=== PATIENT | female | born 1955 | race Caucasian/White ===

== ENCOUNTER 2023-05-13 10:23 | Outpatient (OUT) | payer MEDICARE, SELFPAY ==
--- NOTE | 2023-05-13 10:26 | MM_ITS ---
Patient Name: STEPHANIE JACOB MR#: [id number] : 1955 Exam Date: 05/13/2023 Ordering Doctor: DR YADIEL SANTANA M.D. RADIOLOGY REPORT PROCEDURE: MM TOMOSYNTHESIS SCREENING BI COMPARISON: MAMMO POST BIOPSY RIGHT, 06/02/2021. MG MAMM SCREEN 3D GERARD CAD, 05/12/2022. INDICATIONS: screening Calculator Name NCI Breast Cancer Risk Assessment Tool 5 Year Breast Cancer Risk 2.00% Lifetime Breast Cancer Risk 6.30% Personal Breast Cancer No Personal Ovarian Cancer No Treatments None Family Cancers Father with colon cancer at age ~76. LOCATION: [facility] BREAST COMPOSITION: Heterogeneously dense,which may obscure small masses. FINDINGS: DIAGNOSTIC CATEGORY 2--BENIGN FINDING. NO CHANGE FROM COMPARISON. Scattered benign-appearing calcifications are present. RIGHT BREAST: No significant suspicious finding. Stable micro clip marker lower inner quadrant, anterior breast LEFT BREAST: No significant suspicious finding. RECOMMENDATIONS: ROUTINE MAMMOGRAM AND CLINICAL EVALUATION IN 12 MONTHS. PLEASE NOTE: A NORMAL MAMMOGRAM DOES NOT EXCLUDE THE POSSIBILITY OF BREAST CANCER. A CLINICALLY SUSPICIOUS PALPABLE LUMP SHOULD BE BIOPSIED. Dictated by: Cole Robles MD on 05/13/2023 at 12:50 Approved by: Cole Robles MD on 05/13/2023 at 12:52
== END 2023-05-13 10:24 | disposition home or self-care (01) ==
LOC: MAMMO 10:23
PROVIDERS: PCP Family Medicine; Visit Provider Family Medicine
DX: Z12.31 Encounter for screening mammogram for malignant neoplasm of breast (principal); Z80.0 Family history of malignant neoplasm of digestive organs
CPT/HCPCS: 77063; 77067

== ENCOUNTER 2024-02-03 09:58 | Outpatient (OUT) | payer MEDICARE, SELFPAY ==
--- OUTSIDE RECORDS SUMMARY | 2024-02-03 10:03 | XMS_ITS | CCD ---
Author Organization [facility] Care Team Providers Care 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 Name Role Phone ESTHER, DR COTTO Admitting Unavailable ESTHER, DR COTTO Attending Unavailable ESTHER, DR COTTO Primary Care Unavailable ETSHER, DR COTTO Consulting Unavailable WEST, DR LALA [place] Consulting Unavailable ESTHER, DR COTTO Admitting Unavailable ESTHER, DR COTTO Attending Unavailable ESTHER, DR COTTO Primary Care Unavailable ESTHER, DR COTTO Consulting Unavailable WEST, DR LALA [place] Consulting Unavailable HEMMER, DR RAJWINDER Olsen Admitting Unavailable HEMMER, DR RAJWINDER Olsen Attending Unavailable ESTHER, DR COTTO Primary Care Unavailable Zieber, DR Dick Consulting Unavailable HEMMER, DR RAJWINDER Olsen Consulting Unavailable Boby Santana MD Unavailable Boby Santana MD Primary Care Provider [phone] BOBY SANTANA Attending Unavailable BOBY SANTANA Attending Unavailable BOBY SANTANA Attending Unavailable Boby Santana MD Unavailable Medications Current Medications Medication Drug Class(es) Dates Sig (Normalized) Sig (Original) alendronic acid 70 mg oral tablet (4 sources) Bisphosphonate Start: 03-17-2023 alendronate (Fosamax) 70 MG tablet Indications: Osteoporosis, unspecified osteoporosis type, unspecified pathological fracture presence (CMS/HCC) TAKE 1 TABLET ONCE WEEKLY 12 tablet 3 03/17/2023 Active atorvastatin 20 mg oral tablet (4 sources) HMG-CoA Reductase Inhibitor Start: 05-10-2023 atorvastatin (Lipitor) 20 MG tablet Indications: Elevated LDL cholesterol level (CMS/HCC) TAKE 1 TABLET ONCE DAILY 100 tablet 3 05/10/2023 Active busPIRone hydrochloride 5 mg oral tablet (4 sources) Start: 12-02-2023 take 1 tablet by mouth three times daily at bedtime busPIRone (Buspar) 5 MG tablet Indications: Anxiety TAKE 1 TABLET BY MOUTH THREE TIMES DAILY (IN THE MORNING, IN THE EVENING, and BEFORE bedtime) 100 tablet 2 12/02/2023 Active Start: 10-05-2022 take 1 tablet by marisol th in the morning, then take 1 tablet by mouth in the evening, then take 1 tablet by mouth at bedtime busPIRone (Buspar) 5 MG tablet Indications: Anxiety Take 1 tablet (5 mg) by mouth in the morning and 1 tablet (5 mg) in the evening and 1 tablet (5 mg) before bedtime. 90 tablet 2 10/05/2022 Active carvedilol 6.25 mg oral tablet (2 sources) alpha-Adrenergic Carole, beta-Adrenergic Carole Start: 01-17-2024 End: 01-16-2025 take 1 tablet by mouth in the morning carvedilol (Coreg) 6.25 MG tablet Indications: Primary hypertension (CMS/HCC) Take 1 tablet (6.25 mg) by mouth in the morning and 1 tablet (6.25 mg) in the evening. Take with meals. 60 tablet 11 01/17/2024 01/16/2025 Active hydroCHLOROthiazide 25 mg oral tablet (4 sources) Thiazide Diuretic Start: 09-01-2023 take 1 tablet by mouth once daily hydroCHLOROthiazide (HYDRODiuril) 25 MG tablet Indications: Primary hypertension (CMS/HCC) TAKE 1 TABLET BY MOUTH ONCE DAILY at the same time each day 100 tablet 3 09/01/2023 Active hydroCHLOROthiaz sammie (HYDRODiuril) 12.5 MG tablet 1 (one) time each day at the same time. 0 Active zolpidem tartrate 10 mg oral tablet (5 sources) gamma-Aminobutyric Acid-ergic Agonist Start: 12-27-2023 zolpidem (Ambien) 10 MG tablet Indications: Anxiety Take 1 tablet (10 mg) by mouth as needed at bedtime for sleep 30 tablet 12/27/2023 Active Start: 01-11-2023 End: 08-18-2023 take 1 tablet by mouth once daily zolpidem (Ambien) 10 MG tablet Indications: Anxiety Take 1 tablet (10 mg) by mouth 1 (one) time each day at the same time 30 tablet 2 05/20/2023 08/18/2023 Active Problems Active Problems Problem Classification Problem Date Documented Date Episodic/Chronic Anxiety disorders (5 sources) Anxiety; Translations: [Anxiety disorder, unspecified] Onset: 09-29-2022 05-20-2023 Chronic Coagulation and hemorrhagic disorders (4 sources) Thrombocytopenic disorder; Translations: [Thrombocytopenia, unspecified] Onset: 09-29-2022 09-29-2022 Chronic Disorders of lipid metabolism (4 sources) Raised low density lipoprotein cholesterol; Translations: [Pure hypercholesterolemia, unspecified] Onset: 09-29-2022 10-27-2022 Chronic Essential hypertension (6 sources) Hypertensive disorder; Translations: [Essential (primary) hypertension] Onset: 10-05-2022 10-05-2022 Chronic Glaucoma (4 sources) Bilateral glaucoma; Translations: [Unspecified glaucoma] Onset: 09-29-2022 09-29-2022 Chronic Menopausal disorders (6 sources) Decreased estrogen level; Translations: [Other primary ovarian failure] Onset: 09-29-2022 09-29-2022 Chronic Nonmalignant breast conditions (1 source) Fibrosclerosis of right breast; Translations: [FIBROSCLEROSIS OF RIGHT BREAST] Onset: 06-09-2021 Chronic Nutritional deficiencies (4 sources) Vitamin D deficiency; Translations: [Vitamin D deficiency, unspecified] Onset: 09-29-2022 09-29-2022 Chronic Osteoporosis (4 sources) Osteoporosis; Translations: [Age-related osteoporosis without current pathological fracture] Onset: 09-29-2022 09-29-2022 Chronic Residual codes; unclassified (6 sources) Obstructive sleep apnea syndrome; Translations: [Obstructive sleep apnea (adult) (pediatric)] Onset: 09-29-2022 Resolved: 06-07-2023 09-29-2022 Chronic Residual codes; unclassified (1 source) Family history of malignant neoplasm of digestive organs; Translations: [FAM HX MALIG NEOPLASM DIGESTIV ORGN] Onset: 05-14-2022 Episodic Unclassified (1 source) Unspecified lump in the right breast, overlapping quadrants; Translations: [UNS LUMP RT BREAST OVRLPNG QUADRNTS] Onset: 06-09-2021 Past or Other Problems Problem Classification Problem Date Documented Da te Episodic/Chronic Administrative/social admission (4 sources) Patient encounter status; Translations: [Other specified counseling] Onset: 10-05-2022 10-05-2022 Episodic Nonmalignant breast conditions (5 sources) Solitary cyst of right breast; Translations: [Disorder of breast, unspecified] Onset: 05-29-2021 Episodic Other bone disease and musculoskeletal deformities (4 sources) Osteopenia; Translations: [Other specified disorders of bone density and structure, unspecified site] Onset: 10-05-2022 10-05-2022 Episodic Other circulatory disease (4 sources) Elevated blood pressure; Translations: [Elevated blood-pressure reading, without diagnosis of hypertension] Onset: 09-29-2022 09-29-2022 Episodic Other eye disorders (1 source) Xanthoma of eyelid; Translations: [Xanthelasma of unspecified eye, unspecified eyelid] Onset: 09-29-2022 09-29-2022 Episodic Other eye disorders (3 sources) Xanthelasma; Translations: [Xanthelasma of unspecified eye, unspecified eyelid] Onset: 09-29-2022 09-29-2022 Episodic Other screening for suspected conditions (not mental disorders or infectious disease) (20 sources) Encounter for screening mammogram for malignant neoplasm of breast; Translations: [Other abnormal and inconclusive findings on diagnostic imaging of breast] Onset: 05-27-2021 Episodic Residual codes; unclassified (4 sources) Family history of cancer of colon; Translations: [Family history of malignant neoplasm of digestive organs] Onset: 09-29-2022 09-29-2022 Episodic Residual codes; unclassified (4 sources) Insomnia; Translations: [Insomnia, unspecified] Onset: 09-29-2022 09-29-2022 Episodic Results Test Name Value Interpretation Reference Range Facil ity MG MAMM SCREEN 3D GERARD CADon 05-12-2022 MG MAMM SCREEN 3D GERARD CAD Patient: JULISSA AUSTIN Exam Date: 05/12/2022 : 1955 Gender:F Ordering : DR BOBY SANTANA M.D. Admission #: [id number] Family : Order #: [id number] CLICK HERE TO VIEW EXAM RADIOLOGY REPORT PROCEDURE: MAMMOGRAM SCREENING 3D BILATERAL CAD COMPARISON: MG MAMM DX 3D RT CAD, 05/27/2021. MAMMO POST BIOPSY RIGHT, 06/02/2021. INDICATIONS: Screening mammography Calculator Name NCI Breast Cancer Risk Assessment Tool 5 Year Breast Cancer Risk 2.00% Lifetime Breast Cancer Risk 6.60% Personal Breast Cancer No Personal Ovarian Cancer No Treatments None Family Cancers Father with colon cancer at age 76. LOCATION: [facility] BREAST COMPOSITION: Heterogeneously dense,which may obscure small masses. FINDINGS: DIAGNOSTIC CATEGORY 2--BENIGN FINDING. NO CHANGE FROM COMPARISON. Scattered benign-appearing nodules are present. Scattered benign-appearing calcifications are present. Scattered benign-appearing lymph nodes are present. RIGHT BREAST: No significant suspicious finding. LEFT BREAST: No significant suspicious finding. RECOMMENDATIONS: ROUTINE MAMMOGRAM AND CLINICAL EVALUATION IN 12 MONTHS. PLEASE NOTE: A NORMAL MAMMOGRAM DOES NOT EXCLUDE THE POSSIBILITY OF BREAST CANCER. A CLINICALLY SUSPICIOUS PALPABLE LUMP SHOULD BE BIOPSIED. Dictated by: Lala Robles MD on 05/13/2022 at 09:26 Approved by: Lala Robles MD on 05/13/2022 at 09:27 Normal [facility] MAMMO POST BIOPSY RIGHTon MAMMO POST BIOPSY RIGHT Patient: JULISSA AUSTIN Exam Date: 06/02/2021 : 1955 Gender:F Ordering : DR BOBY SANTANA M.D. Admission #: [id number] Family : Order #: [id number] CLICK HERE TO VIEW EXAM This report includes an Addendum and supersedes previous reports for this exam. RADIOLOGY REPORT PROCEDURE: MAMMOGRAM POST BIOPSY IMAGES COMPARISON: [employer] MAMM DX 3D RT CAD, 05/27/2021. INDICATIONS: Lesion of breast BREAST COMPOSITION: Heterogeneously dense,which may obscure small masses. FINDINGS: BIOPSY MARKER: A metallic marker has been placed in the targeted location within the lower inner quadrant of the anterior right breast. BREAST FINDINGS: Postprocedural changes Dictated by: Lala Robles MD on 06/02/2021 at 14:35 Approved by: Lala Robles MD on 06/02/2021 at 14:36 ADDENDUM: FINDINGS: DIAGNOSTIC CATEGORY 2--BENIGN FINDING: RECOMMENDATIONS: ROUTINE MAMMOGRAM AND CLINICAL EVALUATION IN 12 MONTHS. CLINICAL EVALUATION. Dictated by: Lala Robles MD on 06/16/2021 at 07:38 Approved by: Lala Robles MD on 06/16/2021 at 07:38 Normal [facility] US FINE NDL ASP W US GDNCEon 06-02-2021 US FINE NDL ASP W US GDNCE Patient: JULISSA AUSTIN. Exam Date: 06/02/2021 : 1955 Gender:F Ordering : DR BOBY SANTANA M.D. Admission #: [id number] Family : Order #: [id number] CLICK HERE TO VIEW EXAM This report includes an Addendum and supersedes previous reports for this exam. RADIOLOGY REPORT PROCEDURE: ULTRASOUND FINE NEEDLE ASPIRATION WITH ULTRASOUND GUIDANCE COMPARISON: None. INDICATIONS: Lump in right breast DESCRIPTION: After obtaining informed consent, ultrasound-guided fine needle aspiration was performed in the usual sterile manner. FINDINGS: IMAGING: Ultrasound. BIOPSY NEEDLE: 18 gauge, 1.5 inch LOCATION: 10:00 a.m. Right breast septated cystic lesion SPECIMEN TYPE: 2 cubic cm of brown to black turbid fluid. LOCAL ANESTHETIC: 2 cubic cm 1% Buffered lidocaine without epinephrine. COMPLICATIONS: None. LABORATORY: Prepared slide smears and washings for cell block evaluation. OTHER: Negative. PATHOLOGY: Pending. An addendum will be added when results are available. CONCLUSION: 1. Uneventful ultrasound guided fine needle aspiration (FNA). 2. Pathology results are pending. Dictated by: Lala Robles MD on 06/02/2021 at 15:16 Approved by: Lala Robles MD on 06/02/2021 at 15:17 ADDENDUM: Final diagnosis atypical period predominantly apocrine cells. Cytology report faxed to Dr. Santana and verified with Marixa by telephone Dictated by: Lala Robles MD on 06/16/2021 at 07:36 Approved by: Lala Robles MD on 06/16/2021 at 07:37 Normal [facility] US VAC ASST BX BRST RT W CLI Doroteo 06-02-2021 US VAC ASST BX BRST RT W CLIP Patient: JULISSA AUSTIN. Exam Date: 06/02/2021 : 1955 Gender:F Ordering : DR BOBY SANTANA M.D. Admission #: [id number] Family : Order #: [id number] CLICK HERE TO VIEW EXAM This report includes an Addendum and supersedes previous reports for this exam. RADIOLOGY REPORT PROCEDURE: ULTRASOUND BIOPSY VACCUUM ASSISTED RIGHT WITH CLIP COMPARISON: None. INDICATIONS: Lesion of breast DESCRIPTION: After obtaining informed consent, a vacuum assisted ultrasound-guided biopsy was performed in the usual sterile manner. The location of the biopsy was then marked as indicated below. FINDINGS: RECOMMENDATIONS: SPECIMEN #, LOCATION: 3 samples, 6:00 a.m. Right breast mass BIOPSY NEEDLE: 13 gauge Elite (r) vacuum core biopsy needle. MARKERS(S) PLACED: A single spring shape metallic marker was placed in the appropriate targeted location. MEDICATION: 2 cubic cm 1% buffered lidocaine without epinephrine superficial, 6 cubic cm Buffered 1% lidocaine with epinephrine administered deep. COMPLICATIONS: None. PATHOLOGY LAB: Pending. CONCLUSION: 1. Uneventful ultrasound-guided breast vacuum assisted core biopsy. 2. Pathology results are pending. An addendum to this report will be provided after pathology results are available. Dictated by: Lala Robles MD on 06/02/2021 at 15:05 Approved by: Lala Robles MD on 06/02/2021 at 15:06 ADDENDUM: The pathology report is now available and shows benign findings concordant with the imaging findings. Final diagnosis benign breast tissue with focal stromal fibrosis. No evidence of malignancy. Pathology report faxed to Dr. Santana and verified with Marixa by telephone Dictated by: Lala Robles MD on 06/16/2021 at 07:35 Approved by: Lala Robles MD on 06/16/2021 at 07:36 Normal [facility] MG MAMM DX 3D RT CADon 05-27 MG MAMM DX 3D RT CAD Patient: JULISSA AUSTIN Exam Date: 05/27/2021 : 1955 Gender:F Ordering : DR RAJWINDER SILVA PA Admission #: [id number] Family : Order #: [id number] CLICK HERE TO VIEW EXAM RADIOLOGY REPORT PROCEDURE: MAMMOGRAM DIAGNOSTIC 3D RIGHT CAD, 05/27/2021, 13:59 ULTRASOUND BREAST RIGHT LIMITED, 05/27/2021, 14:35 COMPARISON: US BREAST RIGHT LIMITED, 11/21/2020. MG MAMM SCREEN 3D GERARD CAD, 11/18/2020. MG MAMM SCREEN GERARD W CAD, 11/14/2019. INDICATIONS: Abnormal findings on diagnostic imaging of breast Calculator Name NCI Breast Cancer Risk Assessment Tool 5 Year Breast Cancer Risk 1.30% Lifetime Breast Cancer Risk 4.60% Personal Breast Cancer No Personal Ovarian Cancer No Treatments None Family Cancers Father with colon cancer at age 76. LOCATION: [facility] BREAST COMPOSITION: Heterogeneously dense,which may obscure small masses. FINDINGS: DIAGNOSTIC CATEGORY 4--SUSPICIOUS FOR MALIGNANCY. FINDING DOES NOT EXHIBIT CLASSIC FINDINGS OF BREAST CANCER: RIGHT BREAST: Today's mammographic views demonstrate persistence of poorly defined masses/cysts within the anterior breast subareolar in location. Ultrasound evaluation demonstrates a heterogeneous hypoechoic lesion at the 6 o'clock position subareolar location 5 x 3 x 2 mm is a which is taller than wide and suspicious in appearance. At the 10 o'clock position 1.7 cm from the nipple is a 5 mm of slightly irregular anechoic cystic structure adjacent to, and suspected to be connected by a thin stalk tweak complex cyst 2.4 x 1.0 x 0.3 cm. MRI of the breast is recommended for further evaluation but patient expresses that due to other factors she cannot undergo MRI. Therefore ultrasound-guided biopsies of the 6:00 subareolar lesion and the 10:00 adjacent complex cysts are recommended for further evaluation. RECOMMENDATIONS: BREAST MRI: RIGHT BREAST ULTRASOUND-GUIDED CORE BIOPSY: RIGHT BREAST PLEASE NOTE: A NORMAL MAMMOGRAM DOES NOT EXCLUDE THE POSSIBILITY OF BREAST CANCER. A CLINICALLY SUSPICIOUS PALPABLE LUMP SHOULD BE BIOPSIED. Dictated by: Kapil De La O M.D. on 05/27/2021 at 14:57 Approved by: Kapil De La O M.D. on 05/27/2021 at 15:21 Normal [facility] US BREAST RIGHT LIMITEDon US BREAST RIGHT LIMITED Patient: JULISSA AUSTIN Exam Date: 05/27/2021 : 1955 Gender:F Ordering : DR RAJWINDER SILVA PA Admission #: [id number] Family : Order #: [id number] CLICK HERE TO VIEW EXAM RADIOLOGY REPORT PROCEDURE: MAMMOGRAM DIAGNOSTIC 3D RIGHT CAD, 05/27/2021, 13:59 ULTRASOUND BREAST RIGHT LIMITED, 05/27/2021, 14:35 COMPARISON: US BREAST RIGHT LIMITED, 11/21/2020. MG MAMM SCREEN 3D GERARD CAD, 11/18/2020. MG MAMM SCREEN GERARD W CAD, 11/14/2019. INDICATIONS: Abnormal findings on diagnostic imaging of breast Calculator Name NCI Breast Cancer Risk Assessment Tool 5 Year Breast Cancer Risk 1.30% Lifetime Breast Cancer Risk 4.60% Personal Breast Cancer No Personal Ovarian Cancer No Treatments None Family Cancers Father with colon cancer at age 76. LOCATION: [facility] BREAST COMPOSITION: Heterogeneously dense,which may obscure small masses. FINDINGS: DIAGNOSTIC CATEGORY 4--SUSPICIOUS FOR MALIGNANCY. FINDING DOES NOT EXHIBIT CLASSIC FINDINGS OF BREAST CANCER: RIGHT BREAST: Today's mammographic views demonstrate persistence of poorly defined masses/cysts within the anterior breast subareolar in location. Ultrasound evaluation demonstrates a heterogeneous hypoechoic lesion at the 6 o'clock position subareolar location 5 x 3 x 2 mm is a which is taller than wide and suspicious in appearance. At the 10 o'clock position 1.7 cm from the nipple is a 5 mm of slightly irregular anechoic cystic structure adjacent to, and suspected to be connected by a thin stalk tweak complex cyst 2.4 x 1.0 x 0.3 cm. MRI of the breast is recommended for further evaluation but patient expresses that due to other factors she cannot undergo MRI. Therefore ultrasound-guided biopsies of the 6:00 subareolar lesion and the 10:00 adjacent complex cysts are recommended for further evaluation. RECOMMENDATIONS: BREAST MRI: RIGHT BREAST ULTRASOUND-GUIDED CORE BIOPSY: RIGHT BREAST PLEASE NOTE: A NORMAL MAMMOGRAM DOES NOT EXCLUDE THE POSSIBILITY OF BREAST CANCER. A CLINICALLY SUSPICIOUS PALPABLE LUMP SHOULD BE BIOPSIED. Dictated by: Kapil De La O M.D. on 05/27/2021 at 14:57 Approved by: Kapil De La O M.D. on 05/27/2021 at 15:21 Normal [facility] Vital Signs Date Time Vital Sign Value Performing Clinician Faci lity 01-17-2024 13:09040 Body height 154.9 cm Boby Santana MD Work Phone: [facility] 01-17-2024 13:09040 Body mass index (BMI) [Ratio] 27.02 kg/m2 Boby Santana MD Work Phone: [facility] 01-17-2024 13:090400 Body weight 64.86 kg Boby Santana MD Work Phone: [facility] 01-17-2024 13:09-0400 Diastolic blood pressure 88 mm[Hg] Boby Santana MD Work Phone: [facility] 01-17-2024 13:09-0400 Heart rate 90 /min Boby Santana MD Work Phone: [facility] 01-17-2024 13:09-0400 SaO2% (BldA) [Mass fraction] 98 % Boby Santana MD Work Phone: [facility] 01-17-2024 13:09-0400 Systolic blood pressure 138 mm[Hg] Boby Santana MD Work Phone: [facility] Encounters Encounter Date Encounter Type Care Provider Facility Start: 01-17-2024 End: 01-17-2024 Bamboo flowsheet Boby Santana MD Work Phone: [facility] Start: 01-17-2024 End: 01-17-2024 Bamboo flowsheet Boby Santana MD Work Phone: [facility] Start: 01-17-2024 End: 01-17-2024 Assay of hemosiderin, quant Boby Santana MD Work Phone: [facility] Start: 01-17-2024 End: 01-17-2024 Patient encounter procedure Boby Santana MD Work Phone: [facility] Comment on above: Routine general medi el examination at health care facility (Primary Dx); Estrogen deficiency; Primary hypertension (CMS/HCC); Obstructive sleep apnea (adult) (pediatric) Start: 01-17-2024 End: 01-17-2024 ambulatory RUGEN M ESTHER Not Available Start: 07-06-2023 End: 07-06-2023 ambulatory RUGEN M ESTHER Not Available Start: 06-07-2023 End: 06-07-2023 ambulatory RUGEN M ESTHER Not Available Start: 05-20-2023 Refill Marixa Robins MA [facility] Comment on above: Anxiety Start: 10-05-2022 Assay of hemosiderin, quant Marixa Robins MA [facility] Start: 10-05-2022 Patient encounter procedure Marixa Robins MA [facility] Start: 05-12-2022 End: 05-13-[address] BOBY SANTANA Facility:[facility] Start: 06-02-2021 End: 06-02-[address] BOBY SANTANA Facility:[facility] Start: 05-27-2021 End: 05-28-[address] RAJWINDER SILVA Facility:[facility] Procedures Date Procedure Procedure Detail Performing Clinician Start: 05-13-2023 Mammography Marixa Michaud alex THOMAS Start: 10-08-2015 Colonoscopy Marixa Michaud alex THOMAS Plan of Treatment Date Care Activity Detail Author Start: 10-07-2025 Screening for malign ant neoplasm of colon [facility] Start: 01-16-2025 Medicare Annual Wellness (AWV) Medicare Annual Wellness (AWV) [facility] Start: 05-13-2024 Screening for malign ant neoplasm of breast Mammogram [facility] Start: 01-17-2024 End: 01-16-2025 DXA Skeletal system Views for bone density DEXA bone density Imaging Routine Estrogen deficiency Expected: 01/17/2024, Expires: 01/16/2025 [facility] Work Phone: Comment on above: Expected: 01/17/2024 , Expires: 01/16/2025 Start: 01-17-2024 End: 01-17-2024 Patient encounter procedure 01/17/2024 1:00 PM EDT Office Visit [facility] [address] [address] [place] [id number] Boby Santana MD [address] [facility] [address] [place] [address] Arrived [facility] Comment on above: Arrived Start: 12-05-2023 Influenza vaccination Influenza Vacc ine (#1) [facility] Start: 10-06-2023 Medicare Annual Wellness (AWV) Medicare Annual Wellness (AWV) [facility] Start: 08-19-2023 Pneumococcal Vaccine : 65+ Years (3 of 3 - PPSV23 or PCV20) Pneumococcal Vaccine: 65+ Years (3 of 3 - PPSV23 or PCV20) [facility] Start: 1955 Screening for malign ant neoplasm of colon [facility] Immunizations Immunization Date Immunization Notes Care Provider Fa cility 01-13-2024 influenza, high dose seasonal, preservative-free Boby Santana MD Work Phone: [facility] 01-13-2024 influenza virus vacc ine, unspecified formulation Boby Santana MD Work Phone: [facility] 04-09-2023 ABRYSVO - Respirator y syncytial virus (RSV), vaccine, bivalent, protein subunit RSV prefusion F, diluent reconstituted, 0.5 mL, PF Boby Santana MD Work Phone: [facility] 01-15-2023 Influenza, Seasonal, Quadrivalent, Adjuvanted oBby Santana MD Work Phone: [facility] 12-24-2021 Influenza, Seasonal, Quadrivalent, Adjuvanted Boby Santana MD Work Phone: [facility] 11-19-2020 Influenza, High-dose Seasonal, Quadrivalent, Preservative Free Marixa Shimon THOMAS [facility] 07-22-2020 zoster vaccine recombinant R jeanette Santana MD Work Phone: [facility] 01-01-2020 influenza, injectabl e, quadrivalent, preservative free Marixa Shiomn THOMAS [facility] 01-01-2020 Influenza, Seasonal, Quadrivalent, Adjuvanted Boby Santana MD Work Phone: [facility] 04-18-2019 zoster vaccine recombinant Marixa Oscar lee MA [facility] 08-18-2018 pneumococcal conjuga te vaccine, 13 valent Marixa Shimon THOMAS [facility] 12-27-2017 influenza, injectabl e, quadrivalent, preservative free Boby Santana MD Work Phone: [facility] 12-27-2017 seasonal influenza, intradermal, preservative free Marixa Shimon THOMAS [facility] 01-18-2017 influenza, injectabl e, quadrivalent, preservative free Boby Santana MD Work Phone: [facility] 01-04-2017 influenza, injectabl e, quadrivalent, preservative free Marixa Shimon THOMAS [facility] 01-01-2016 influenza, injectabl e, quadrivalent, preservative free Boby Santana MD Work Phone: [facility] 01-03-2015 seasonal influenza, intradermal, preservative free [facility] Shimon THOMAS [facility] 10-31-2013 influenza, seasonal, injectable Boby Santana MD Work Phone: [facility] 10-31-2013 zoster vaccine, live [facility] Shimon [facility]OM[facility] [facility] 10[facility]2013 tetanus toxoid, redu aishwarya diphtheria toxoid, and acellular pertussis vaccine, adsorbed [facility] 09-07-2013 pneumococcal polysaccharide vaccine, 23 valent [facility] 01-24-2013 influenza, seasonal, injectable Boby Santana MD Work Phone: [facility] 03-17-2011 tetanus and diphther ia toxoids, adsorbed, preservative free, for adult use (2 Lf of tetanus toxoid and 2 Lf of diphtheria toxoid) [facility] 05-27-2009 novel influenza-H1N1 -09, preservative-free, injectable Boby Santana MD Work Phone: [facility] Payers Date Payer Category Payer Medicaid [employer] MEDICARE A DVANTAGE [id number] 2021 Medicare AETNA MEDICARE A DVANTAGE AETNA MEDICARE REPLACEMENT [id number] 2021-Present [address] [place] [address] [id number] 1959 Medicare [id number] 1961 Medicare [id number] 1955 Unknown [id number] 1955 Unknown [id number] 1955 Unknown [id number] 1955 Unknown [id number] 1955 Unknown [id number] 1955 Unknown [id number] Social History Date Type Detail Facility Start: 09-29-2022 Tobacco smoking status NHIS Never sm oked tobacco [facility] Start: 09-29-2022 Tobacco use and exposure Smoke less tobacco non-user [facility] Start: 10-16-2022 End: 01-17-2024 Alcohol intake Current drinker of alcohol (finding) [facility] Start: 09-29-2022 End: 06-06-2023 [facility] of [facility] Start: 09-29-2022 End: 06-06-2023 Tobacco use panel [facility] Start: 10-16-2022 Alcohol Comment Monthly or les s. Caffeine: soda [facility] Start: 1955 Sex Assigned At Female [facility] Start: 12-13-2022 Gender identity Identifies as female gender (finding) [facility] Do you belong to any clubs or organizations such as baptism groups, unions, fraternal or athletic groups, or school groups? No [facility] Are you now , , , , never or living with a partner? [facility] How often to you hav e a drink containing alcohol? Monthly or less [facility] How many standard dr inks containing alcohol do you have on a typical day? 1 or 2 [facility] How often do you hav e 6 or more drinks on 1 occasion? Never [facility] How hard is it for y ou to pay for the very basics like food, housing, medical care, and heating Not hard at all [facility] Do you feel stress - tense, restless, nervous, or anxious, or unable to sleep at night because your mind is troubled all the time - these days [OSQ] Rather much [facility] (I/We) worried wheth er (my/our) food would run out before (I/we) got money to buy more. Never true [facility] History of Present illness Narrative 01-17-2024 Boby Santana MD - 01/17/2024 1:28 PM EDTRjeanette Santana MD - 01/17/2024 1:00 PM EDT Note Date & Type Note Facility 01-17-2024 History of Presen t illness Narrative Associated Problem(s): Obstructive sleep apnea (adult) (pediatric) (Resolved 06/07/2023) Sleep Study was normal Images from the original note were not included. Subjective : Chief Complaint: Julissa Austin is an 68 y.o. female here for an annual wellness visit. I have reviewed and reconciled the history and medication list with the patient today. Current Outpatient Medications Medication Sig Dispense Refill alendronate (Fosamax) 70 MG tablet TAKE 1 TABLET ONCE WEEKLY 12 tablet 3 atorvastatin (Lipitor) 20 MG tablet TAKE 1 TABLET ONCE DAILY 100 tablet 3 busPIRone (Buspar) 5 MG tablet TAKE 1 TABLET BY MOUTH THREE TIMES DAILY (IN THE MORNING, IN THE EVENING, and BEFORE bedtime) 100 tablet 2 hydroCHLOROthiazide (HYDRODiuril) 25 MG tablet TAKE 1 TABLET BY MOUTH ONCE DAILY at the same time each day 100 tablet 3 zolpidem (Ambien) 10 MG tablet Take 1 tablet (10 mg) by mouth as needed at bedtime for sleep 30 tablet 0 No current facility-administered medications for this visit. Review of Systems Constitutional: Negative for chills, fatigue, fever and unexpected weight change. Respiratory: Negative for cough. Cardiovascular: Negative for chest pain. Gastrointestinal: Negative for abdominal pain, blood in stool, constipation, diarrhea, nausea and vomiting. Genitourinary: Negative for dysuria, enuresis, frequency and hematuria. Musculoskeletal: Negative for back pain. Neurological: Negative for dizziness, tremors, syncope, facial asymmetry and speech difficulty. Psychiatric/Behavioral: Negative for agitation, behavioral problems, confusion and dysphoric mood. The patient is not nervous/anxious. List of current healthcare providers: Patient Care Team: Boby Santana MD as PCP - General (Family Medicine) Boby Santana MD as PCP - [employer] Medicare Annual Visit Over the past 2 weeks, how often have you been bothered by any of the following problems? Little interest or pleasure in doing things: Not at all Feeling down, depressed, or hopeless: Not at all Patient Health Questionnaire-2 Score: 0 Up Fall Risk History of Falling, Immediate or Within 3 Months: No Health Risk Assessment Form Do you need help eating, bathing, using the toilet, dressing, or getting around your home?: No Can you prepare your own meals?: Yes Can you do your own housework without help?: Yes Can you shop for groceries or clothes without help?: Yes Do you exercise for about 20 minutes 3 or more days a week?: Yes How confident are you that you can control and manage most of your health problems?: Very confident Can you mange your money, credit cards and accounts, pay bills and taxes?: Yes Vision Screening: Yes, no gross abnormalities Hearing Screening: Yes, no gross abnormalities Cognitive Screening Self Assessment: No overt cognitive deficiency is apparent by direct observation Three Word Registration: Lucia Bhatia, Finger Clock Drawing: Normal Clock - 2 Three Word Recall: All 3 words correct - 3 Total Score (0-5 Points): 5 Pain Assessment Pain Score: 0 - No pain Objective : BP 138/88 Pulse 90 Ht 5' 1 Wt 143 lb SpO2 98% BMI 27.02 kg/m No results found. Physical Exam Constitutional: General: She is not in acute distress. Appearance: Normal appearance. HENT: Head: Normocephalic. Neck: Vascular: No carotid bruit. Cardiovascular: Rate and Rhythm: Normal rate and regular rhythm. Pulmonary: Effort: Pulmonary effort is normal. No respiratory distress. Breath sounds: Normal breath sounds. Neurological: General: No focal deficit present. Mental Status: She is alert and oriented to person, place, and time. Psychiatric: Mood and Affect: Mood normal. Assessment/Plan : The following health maintenance schedule was reviewed with the patient and provided in printed form in the after visit summary: Health Maintenance Topic Date Due Pneumococcal Vaccine: 65+ Years (3 of 3 - PPSV23 or PCV20) 08/19/2023 Medicare Annual Wellness (AWV) 10/06/2023 Mammogram 05/13/2024 Colorectal Cancer Screening 10/07/2025 Influenza Vaccine Completed Advance Care Planning Patient willing to discuss ACP. If in place, renew periodically. If not in place, recommend obtaining ACP. Assessment/Plan Problem List Items Addressed This Visit Routine general medical examination at health care facility - Primary Other Visit Diagnoses Estrogen deficiency Relevant Orders DEXA bone density Orders Placed This Encounter Procedures DEXA bone density Standing Status: Future Standing Expiration Date: 01/16/2025 Order Specific Question: Reason for exam: Answer: screening Electronically signed by Boby Santana MD on January 17, 2024 documented in this encounter [facility] Telephone encounter Note 05-20-2023 Telephone Encounter - Marixa Robins MA - 05/20/2023 9:44 AM EST Note Date & Type Note Facility 05-20-2023 Telephone encount er Note Pt has not been seen since October of 2022 [facility] Note 05-20-2023 Telephone Encounter - Marixa Robins MA - 05/20/2023 9:44 AM EST Note Date & Type Note Facility 05-20-2023 Miscellaneous Notes Formattin g of this note might be different from the original. Pt has not been seen since October of 2022 documented in this encounter [facility] Evaluation note Note Date & Type Note Facility Evaluation note Diagnosis Anxiety Anxiety state, unspecified documented in this encounter [facility] Evaluation note Note Date & Type Note Facility Evaluation note Diagnosis Routine general medical examination at health care facility- Primary Routine general medical examination at a health care facility Anxiety Anxiety state, unspecified Hypertension, unspecified type (CMS/HCC) Primary insomnia Persistent disorder of initiating or maintaining sleep Osteopenia, unspecified location Hypercholesterolemia (CMS/HCC) Pure hypercholesterolemia Medicare annual wellness visit, subsequent Advanced care planning/counseling discussion Thrombocytopenia (CMS/HCC) Unspecified thrombocytopenia Primary hypertension (CMS/HCC)- Primary Unspecified essential hypertension Anxiety Anxiety state, unspecified Primary hypertension (CMS/HCC)- Primary Unspecified essential hypertension Age-related osteoporosis without current pathological fracture (CMS/HCC) Routine general medical examination at health care facility- Primary Routine general medical examination at a health care facility Estrogen deficiency Other ovarian failure Primary hypertension (CMS/[facility]) Unspecified essential hypertension Obstructive sleep apnea (adult) (pediatric) documented in this encounter [facility] Summary Purpose Family History No Family History Records FoundNo Family History Records Found Advance Directives No Advanced Directives Records FoundNo Advanced Directives Records Found Additional Source Comments INFORMATION SOURCE (unrecogn ized section and content) DATE CREATED AUTHOR 05/15/2022 [facility] DATE CREATED AUTHOR AUTHOR'S ORGANIZ ATION 01/19/2024 [facility] EPIC Reason for Visit (unrecogniz ed section and content) Reason Onset Date Comments Med Refill 05/20/2023 Reason Comments Medicare Annual Wellness Visit Subsequen t Pt states she can tell her BP is elevated pt is very nervous Pt bp today is 160/90 Care Teams (unrecognized sec tion and content) 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 Start Date End Date Boby Santana MD [address] [facility] [address] [place] [address] PCP - [employer] 04/05/22 Boby Santana MD [address] [facility] [address] [place] [address] PCP - General Family Medicine 10/02/22 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 Start Date End Date Boby Santana MD [address] [facility] [address] [place] [address] PCP - [employer] 04/05/21 Boby Santana MD [address] [facility] [address] [place] [address] PCP - General Family Medicine 10/02/22 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 This clinical summary was aggregated from multiple sources. Caution should be exercised in using it in the provision of clinical care. This summary normalizes information from multiple sources, and as a consequence, information in this document may materially change the coding, format and clinical context of patient data. In addition, data may be omitted in some cases. CLINICAL DECISIONS SHOULD BE BASED ON THE PRIMARY CLINICAL RECORDS. [employer] [facility]. provides no warranty or guarantee of the accuracy or completeness of information in this document.
--- NOTE | 2024-02-03 10:05 | XR_ITS ---
[address] [address] Patient Name: STEPHANIE JACOB MRN: [id number] date: 1955 Sex: F Assigned Patient Location: [facility] Current Patient Location: Accession/Order Number: [id number] Exam Date: 02/03/2024 10:15 Report Date: 02/05/2024 06:35 At the request of: YADIEL SANTANA Procedure: XR DEXA axial skeleton EXAMINATION: XR DEXA axial skeleton HISTORY: Estrogen Deficiency E28.39 COMPARISON: DEXA bone densitometry 10/04/2020 TECHNIQUE: Dual-energy X-ray absorptiometry (DXA) was performed. FINDINGS: SPINE ANALYSIS: Average bone mineral density is 0.927 g/cm2. T-score (standard deviation relative to young adult mean): -2.1 . -1.3% change since prior study. HIP ANALYSIS: Lowest bone mineral density is within the right femoral neck, 0.706 g/cm2. T-score (standard deviation relative to young adult mean): -2.4 . +1.0% change since prior study. XR/XR DEXA axial skeleton IMPRESSION: World Health Organization Classification: Osteopenia - Moderate Fracture Risk FRAX: Cannot be calculated. Pharmacologic treatment recommendations * No uniform recommendation applies to all patients. Management plans must be individualized. * Consider initiating pharmacologic treatment in postmenopausal women and men >= 50 years of age who have the following: Primary fracture prevention: * T-score <= - 2.5 at the femoral neck, total hip, lumbar spine, 33% radius (some uncertainty with existing data) by DXA. * Low bone mass (osteopenia: T-score between - 1.0 and - 2.5) at the femoral neck or total hip by DXA with a 10-year hip fracture risk >= 3% or a 10-year major osteoporosis-related fracture risk >= 20% (i.e., clinical vertebral, hip, forearm, or proximal humerus) based on the [place]-adapted FRAXregistered model. Secondary fracture prevention: * Fracture of the hip or vertebra regardless of BMD [4, 5]. * Fracture of proximal humerus, pelvis, or distal forearm in persons with low bone mass (osteopenia: T-score between - 1.0 and - 2.5). The decision to treat should be individualized in persons with a fracture of the proximal humerus, pelvis, or distal forearm who do not have osteopenia or low BMD [12, 13]. Sol MS, Rich SL, Savannah KL, Oma EM, Maureen KG, AJ, Daniel ES. The clinician's guide to prevention and treatment of osteoporosis. Osteoporos Int. 2021;33(10):6702-5656. doi: 10.1007/p85671-145-64938-h. Epub 2021Jul 31. Erratum in: Osteoporos Int. 2021Oct 30;: PMID: [id number]; PMCID: [id number]. Electronically authenticated by: VALERIY SHARMA Date: 02/05/2024 06:35
== END 2024-02-03 09:59 | disposition home or self-care (01) ==
LOC: RAD 10:00
PROVIDERS: PCP Family Medicine; Visit Provider Family Medicine
DX: E28.39 Other primary ovarian failure (principal); M85.80 Other specified disorders of bone density and structure, unspecified site
CPT/HCPCS: 77080

== ENCOUNTER 2024-05-16 12:44 | Outpatient (OUT) | payer MEDICARE, SELFPAY ==
--- NOTE | 2024-05-16 | MM_ITS ---
Patient Name: STEPHANIE JACOB MR#: [id number] : 1955 Exam Date: 05/16/2024 Ordering Doctor: DR YADIEL SANTANA M.D. RADIOLOGY REPORT PROCEDURE: MM TOMOSYNTHESIS SCREENING BI COMPARISON: MM TOMOSYNTHESIS SCREENING BI, 05/13/2023. MG MAMM SCREEN 3D GERARD CAD, 05/12/2022. INDICATIONS: Screening Calculator Name NCI Breast Cancer Risk Assessment Tool 5 Year Breast Cancer Risk 2.10% Lifetime Breast Cancer Risk 6.00% Personal Breast Cancer No Personal Ovarian Cancer No Treatments None Family Cancers Father with colon cancer at age ~76. LOCATION: [facility] BREAST COMPOSITION: The breasts are heterogeneously dense,which may obscure small masses. FINDINGS: DIAGNOSTIC CATEGORY 2--BENIGN FINDING. NO CHANGE FROM COMPARISON. Scattered benign-appearing calcifications are present. RIGHT BREAST: No significant suspicious finding. Stable micro clip marker lower inner quadrant, anterior breast LEFT BREAST: No significant suspicious finding. RECOMMENDATIONS: ROUTINE MAMMOGRAM AND CLINICAL EVALUATION IN 12 MONTHS. PLEASE NOTE: A NORMAL MAMMOGRAM DOES NOT EXCLUDE THE POSSIBILITY OF BREAST CANCER. A CLINICALLY SUSPICIOUS PALPABLE LUMP SHOULD BE BIOPSIED. Dictated by: Cole Robles MD on 05/16/2024 at 14:42 Approved by: Cole Robles MD on 05/16/2024 at 14:43
--- OUTSIDE RECORDS SUMMARY | 2024-05-16 12:47 | XMS_ITS | CCD ---
Author Organization [facility] Care Team Providers Care Pneumatic Drum Sander Name Role Phone ESTHER, DR COTTO Admitting [...] Unavailable HEMMER, DR RAJWINDER Olsen Consulting Unavailable Garland Boby ADAMES Unavailable Boby Santana MD Primary Care Provider Boby Santana MD Unavailable BOBY SANTANA Attending Unavailable ESTHER, BOBY Olsen Attending Unavailable ESTHER, BOBY Olsen Attending Unavailable ESTHER, BOBY Olsen Attending Unavailable Medications Current Medications Medication Drug Class(es) Dates Sig (Normalized) Sig (Original) alendronic acid 70 mg oral tablet (7 sources) Bisphosphonate Start: 02-09-2024 alendronate (Fosamax) 70 MG tablet Indications: Osteoporosis, unspecified osteoporosis type, unspecified pathological fracture presence (CMS/HCC) TAKE 1 TABLET ONCE WEEKLY 12 tablet 3 02/09/2024 Active Start: 03-17-2023 alendronate (F osamax) 70 MG tablet Indications: Osteoporosis, unspecified osteoporosis type, unspecified pathological fracture presence (CMS/HCC) TAKE 1 TABLET ONCE WEEKLY 12 tablet 3 03/17/2023 Active atorvastatin 20 mg oral tablet (7 sources) HMG-CoA Reductase Inhibitor Start: 05-10-2023 atorvastatin (Lipito r) 20 MG tablet Indications: Elevated LDL cholesterol level (CMS/HCC) TAKE 1 TABLET ONCE DAILY 100 tablet 3 05/10/2023 Active busPIRone hydrochloride 5 mg oral tablet (7 sources) Start: 02-21-2024 busPIRone (Bus par) 5 MG tablet Indications: Anxiety TAKE 1 TABLET POTID (IN THE MORNING, THEN IN THE EVENING, AND AT BEDTIME) 100 tablet 2 02/21/2024 Active Start: 12-02-2023 take 1 tablet by marisol th three times daily at bedtime busPIRone (Buspar) [...] 10/05/2022 Active carvedilol 6.25 mg oral tablet (5 sources) alpha-Adrenergic Carole, beta-Adrenergic Carole Start: 01-17-2024 End: 01-16-2025 take 1 tablet by mouth in the morning carvedilol (Coreg) 6.25 MG tablet Indications: Primary hypertension (CMS/HCC) Take 1 tablet (6.25 mg) by mouth in the morning and 1 tablet (6.25 mg) in the evening. Take with meals. 60 tablet 11 01/17/2024 01/16/2025 Active hydroCHLOROthiazide 25 mg oral tablet (7 sources) Thiazide Diuretic Start: 09-01-2023 take 1 tablet by mouth once daily hydroCHLOROthiazide (HYDRODiuril) 25 MG tablet Indications: Primary hypertension (CMS/HCC) TAKE 1 TABLET BY MOUTH ONCE DAILY at the same time each day 100 tablet 3 09/01/2023 Active hydroCHLOROthiaz sammie (HYDRODiuril) 12.5 MG tablet 1 (one) time each day at the same time. 0 Active zolpidem tartrate 10 mg oral tablet (11 sources) gamma-Aminobutyric Acid-ergic Agonist Start: 02-22-2024 End: 04-11-2024 zolpidem (Ambien) 10 MG tablet Indications: Anxiety Take 1 tablet (10 mg) by mouth as needed at bedtime for sleep 30 tablet 04/11/2024 Active Start: 02-22-2024 zolpidem (Ambi en) 10 MG tablet Indications: Anxiety Take 1 tablet (10 mg) by mouth as needed at bedtime for sleep 30 tablet 02/22/2024 Active Start: 12-27-2023 End: 02-22-2024 zolpidem (Ambien) 10 MG tabl et Indications: Anxiety Take 1 tablet (10 mg) by mouth as needed at bedtime for sleep 30 tablet 12/27/2023 02/22/2024 Discontinued (Reorder) Start: 01-11-2023 End: 08-18-2023 take 1 tablet by mouth once daily zolpidem (Ambien) 10 MG tablet Indications: Anxiety Take 1 tablet (10 mg) by mouth 1 (one) time each day at the same time 30 tablet 2 05/20/2023 08/18/2023 Active Problems Active Problems Problem Classification Problem Date Documented Date Episodic/Chronic Anxiety disorders (11 sources) Anxiety; Translations: [Anxiety disorder, unspecified] Onset: 09-29-2022 05-20-2023 Chronic Coagulation and hemorrhagic disorders (7 sources) Thrombocytopenic disorder; Translations: [Thrombocytopenia, unspecified] Onset: 09-29-2022 09-29-2022 Chronic Disorders of lipid metabolism (7 sources) Raised low density lipoprotein cholesterol; Translations: [Pure hypercholesterolemia, unspecified] Onset: 09-29-2022 10-27-2022 Chronic Essential hypertension (11 sources) Hypertensive disorder; Translations: [Essential (primary) hypertension] Onset: 10-05-2022 10-05-2022 Chronic Glaucoma (7 sources) Bilateral glaucoma; Translations: [Unspecified glaucoma] Onset: 09-29-2022 09-29-2022 Chronic Menopausal disorders (9 sources) Decreased estrogen level; Translations: [Other primary ovarian failure] Onset: 09-29-2022 09-29-2022 Chronic Nonmalignant breast conditions (1 source) Fibrosclerosis of right breast; Translations: [FIBROSCLEROSIS OF RIGHT BREAST] Onset: 06-09-2021 Chronic Nutritional deficiencies (7 sources) Vitamin D deficiency; Translations: [Vitamin D deficiency, unspecified] Onset: 09-29-2022 09-29-2022 Chronic Osteoporosis (7 sources) Osteoporosis; Translations: [Age-related osteoporosis without current pathological fracture] Onset: 09-29-2022 09-29-2022 Chronic Residual codes; unclassified (1 source) Family history of malignant neoplasm of digestive organs; Translations: [FAM HX MALIG NEOPLASM DIGESTIV ORGN] Onset: 05-14-2022 Episodic Unclassified (1 source) Unspecified lump in the right breast, overlapping quadrants; Translations: [UNS LUMP RT BREAST OVRLPNG QUADRNTS] Onset: 06-09-2021 Past or Other Problems Problem Classification Problem Date Documented Da te Episodic/Chronic Administrative/social admission (7 sources) Patient encounter status; Translations: [Other specified counseling] Onset: 10-05-2022 10-05-2022 Episodic Nonmalignant breast conditions (5 sources) Solitary cyst of right breast; Translations: [Disorder of breast, unspecified] Onset: 05-29-2021 Episodic Other bone disease and musculoskeletal deformities (9 sources) Osteopenia; Translations: [Other specified disorders of bone density and structure, unspecified site] Onset: 10-05-2022 10-05-2022 Episodic Other circulatory disease (7 sources) Elevated blood pressure; Translations: [Elevated blood-pressure reading, without diagnosis of hypertension] Onset: 09-29-2022 09-29-2022 Episodic Other eye disorders (1 source) Xanthoma of eyelid; Translations: [Xanthelasma of unspecified eye, unspecified eyelid] Onset: 09-29-2022 09-29-2022 Episodic Other eye disorders (6 sources) Xanthelasma; Translations: [Xanthelasma of unspecified eye, unspecified eyelid] Onset: 09-29-2022 09-29-2022 Episodic Other screening for suspected conditions (not mental disorders or infectious disease) (20 sources) Encounter for screening mammogram for malignant neoplasm of breast; Translations: [Other abnormal and inconclusive findings on diagnostic imaging of breast] Onset: 05-27-2021 Episodic Residual codes; unclassified (9 sources) Obstructive sleep apnea syndrome; Translations: [Obstructive sleep apnea (adult) (pediatric)] Onset: 09-29-2022 Resolved: 06-07-2023 09-29-2022 Chronic Residual codes; unclassified (7 sources) Family history of cancer of colon; Translations: [Family history of malignant neoplasm of digestive organs] Onset: 09-29-2022 09-29-2022 Episodic Residual codes; unclassified (7 sources) Insomnia; Translations: [Insomnia, unspecified] Onset: 09-29-2022 09-29-2022 Episodic Results Test Name Value Interpretation Reference Range Facil ity MG MAMM SCREEN 3D GERARD CADon 05-12-2022 MG MAMM SCREEN 3D GERARD CAD Patient: JULISSA AUSTIN Exam Date: 05/12/2022 : 1955 Gender:F Ordering : DR BOBY SANTANA M.D. Admission #: [id number] Family : Order #: [id number] CLICK HERE TO VIEW EXAM RADIOLOGY REPORT [...] colon cancer at age 74. LOCATION: [facility] BREAST COMPOSITION: Heterogeneously dense,which may obscure small [...] Robles MD on 05/13/2022 at 09:27 Normal [facility] MAMMO POST BIOPSY RIGHTon MAMMO POST BIOPSY RIGHT Patient: JULISSA AUSTIN Exam Date: 06/02/2021 : 1955 Gender:F Ordering : DR BOBY SANTANA M.D. Admission #: [id number] Family : Order #: [id number] CLICK HERE TO VIEW EXAM This report includes an Addendum and supersedes previous reports for this exam. RADIOLOGY REPORT PROCEDURE: MAMMOGRAM POST BIOPSY IMAGES COMPARISON: MG MAMM DX 3D RT CAD, 05/27/2021. INDICATIONS: [...] 12 MONTHS. CLINICAL EVALUATION. Dictated by: Lala Roblse MD on 06/16/2021 at 07:38 Approved by: Lala Robles MD on 06/16/2021 at 07:38 Normal [facility] US FINE NDL ASP W US GDNCEon 06-02-2021 US FINE NDL ASP W US GDNCE Patient: JULISSA AUSTIN Exam Date: 06/02/2021 : 1955 Gender:F Ordering : DR BOBY SANTANA M.D. Admission #: [id number] Family : Order #: [id number] CLICK HERE TO VIEW EXAM This report [...] Robles MD on 06/16/2021 at 07:37 Normal [facility] US VAC ASST BX BRST RT W CLI Doroteo 06-02-2021 US VAC ASST BX BRST RT W CLIP Patient: JULISSA AUSTIN Exam Date: 06/02/2021 : 1955 Gender:F Ordering : DR BOBY SANTANA M.D. Admission #: [id number] Family : Order #: [id number] CLICK HERE TO VIEW EXAM This report [...] Robles MD on 06/16/2021 at 07:36 Normal [facility] MG MAMM DX 3D RT CADon 05-27 MG MAMM DX 3D RT CAD Patient: JULISSA AUSTIN Exam Date: 05/27/2021 : 1955 Gender:F Ordering : DR RAJWINDER SILVA PA Admission #: [id number] Family : Order #: [id number] CLICK HERE TO VIEW EXAM RADIOLOGY REPORT [...] colon cancer at age 74. LOCATION: [facility] BREAST COMPOSITION: Heterogeneously dense,which may obscure small [...] M.D. on 05/27/2021 at 15:21 Normal [facility] US BREAST RIGHT LIMITEDon US BREAST RIGHT LIMITED Patient: JULISSA AUSTIN Exam Date: 05/27/2021 : 1955 Gender:F Ordering : DR RAJWINDER SILVA PA Admission #: [id number] Family : Order #: [id number] CLICK HERE TO VIEW EXAM RADIOLOGY REPORT [...] colon cancer at age 74. LOCATION: [facility] BREAST COMPOSITION: Heterogeneously dense,which may obscure small [...] 05/27/2021 at 14:57 Approved by: Kapil De aL O M.D. on 05/27/2021 at 15:21 Normal [facility] Vital Signs Date Time Vital Sign Value Performing Clinician Faci lity 02-22-2024 13:02-0500 Body height 154.9 cm Boby Santana MD Work Phone: [facility] 02-22-2024 13:02-0500 Body mass index (BMI) [Ratio] 27.21 kg/m2 Boby Santana MD Work Phone: [facility] 02-22-2024 13:02-0500 Body weight 65.32 kg Boby Santana MD Work Phone: [facility] 02-22-2024 13:02-0500 Diastolic blood pressure 84 mm[Hg] Boby Santana MD Work Phone: [facility] 02-22-2024 13:02-0500 Heart rate 68 /min Boby Santana MD Work Phone: [facility] 02-22-2024 13:02-0500 SaO2% (BldA) [Mass fraction] 97 % Boby Santana MD Work Phone: [facility] 02-22-2024 13:02-0500 Systolic blood pressure 130 mm[Hg] Boby Santana MD Work Phone: [facility] 01-17-2024 13:09-0400 Body height 154.9 cm Boby Santana MD Work Phone: [facility] 01-17-2024 13:09-0400 Body mass index (BMI) [Ratio] 27.02 kg/m2 Boby Santana MD Work Phone: [facility] 01-17-2024 13:09-0400 Body weight 64.86 kg Boby Santana MD Work Phone: [facility] 01-17-2024 13:09-0400 Diastolic blood pressure 88 mm[Hg] Boby Santana MD Work Phone: [facility] 01-17-2024 13:09-0400 Heart rate 90 /min Boby Santana MD Work Phone: [facility] 01-17-2024 13:09-0400 SaO2% (BldA) [Mass fraction] 98 % Boby Santana MD Work Phone: [facility] 01-17-2024 13:09-0400 Systolic blood pressure 138 mm[Hg] Boby Santana MD Work Phone: [facility] Healthcare Encounters Encounter Date Encounter Type Care Provider Facility Start: 04-11-2024 End: 04-11-2024 Refill Marixa Robins MA [facility] Comment on above: Anxiety Start: 02-22-2024 End: 02-22-2024 Office outpatient visit 25 minutes Boby Santana MD Work Phone: [facility] Comment on above: Primary hypertension (CMS/HCC) (Primary Dx); Anxiety; Osteopenia of lumbar spine Start: 02-22-2024 End: 02-22-2024 ambulatory BOBY SANTANA Not Available Start: 01-17-2024 End: 01-17-2024 Bamboo flowsheet Boby Santana MD Work Phone: [facility] Start: 01-17-2024 End: 01-17-2024 Bamboo flowsheet Boby Santana MD Work Phone: [facility] Start: 01-17-2024 End: 01-17-2024 Assay of hemosiderin, quant Boby Santana MD Work Phone: [facility] Start: 01-17-2024 End: 01-17-2024 Patient encounter procedure Boby Santana MD Work Phone: [facility] Comment on above: Routine general medi el examination at health care facility (Primary Dx); Estrogen deficiency; Primary hypertension (CMS/HCC); Obstructive sleep apnea (adult) (pediatric) Start: 01-17-2024 End: 01-17-2024 ambulatory BOBY Olsen ESTHER Not Available Start: 07-06-2023 End: 07-06-2023 ambulatory BOBY Olsen ESTHER Not Available Start: 06-07-2023 End: 06-07-2023 ambulatory BOBY Olsen ESTHER Not Available Start: 05-20-2023 Refill Marixa Robins MA [facility] Comment on above: Anxiety Start: 10-05-2022 Assay of hemosiderin, quant Marixaher Shimon THOMAS [facility] Start: 10-05-2022 Patient encounter procedure Marixa Howeney [facility] Start: 05-12-2022 End: 05-13-[address] BOBY SANTANA Facility:[facility] Start: 06-02-2021 End: 06-02-[address] BOBY SANTANA Facility:[facility] Start: 05-27-2021 End: 05-28-[address] RAJWINDER SILVA Facility:[facility] Procedures Date Procedure Procedure Detail Performing Clinician Start: 05-13-2023 Mammography Marixa johnson MA Start: 10-08-2015 Colonoscopy Marixa johnson MA Plan of Treatment Date Care Activity Detail Author Start: 10-07-2025 Screening for malign ant neoplasm of colon [facility] Start: 02-21-2025 Pneumococcal Vaccine : 65+ Years (3 of 3 - PPSV23 or PCV20) Pneumococcal Vaccine: 65+ Years (3 of 3 - PPSV23 or PCV20) [facility] Comment on above: Postponed from 08/18 (Patient Refused) Start: 01-16-2025 Medicare Annual Wellness (AWV) Medicare Annual Wellness (AWV) [facility] Start: 08-07-2024 End: 08-07-2024 Patient encounter procedure 08/07/2024 10:00 AM EDT Office Visit [facility] [address] [facility] [address] [place] [address] Boby Santana MD [address] [facility] [address] [place] [address] [facility] Start: 05-13-2024 Screening for malign ant neoplasm of breast Mammogram [facility] Start: 01-17-2024 End: 01-16-2025 DXA Skeletal system Views for bone density DEXA bone density Imaging Routine Estrogen deficiency Expected: 01/17/2024, Expires: 01/16/2025 [facility] Work Phone: Comment on above: Expected: 01/17/2024 , Expires: 01/16/2025 Start: 01-17-2024 End: 01-17-2024 Patient encounter procedure 01/17/2024 1:00 PM EDT Office Visit [facility] [address] [facility] [address] [place] [address] Boby Santana MD [address] [facility] [address] [place] [address] Arrived [facility] Comment on above: Arrived Start: 12-05-2023 Influenza vaccination Influenza Vacc ine (#1) [facility] Start: 10-06-2023 Medicare Annual Wellness (AWV) Medicare Annual Wellness (AWV) [facility] Start: 08-19-2023 Pneumococcal Vaccine : 65+ Years (3 of 3 - PPSV23 or PCV20) Pneumococcal Vaccine: 65+ Years (3 of 3 - PPSV23 or PCV20) [facility] Start: 1955 Screening for malign ant neoplasm of colon [facility] Immunizations Immunization Date Immunization Notes Care Provider Fa cility 01-13-2024 influenza, high dose seasonal, preservative-free Boby Santana MD Work Phone: [facility] 01-13-2024 influenza virus vacc ine, unspecified formulation Boby Santana MD Work Phone: [facility] 04-09-2023 ABRYSVO - Respirator y syncytial virus (RSV), vaccine, bivalent, protein subunit RSV prefusion F, diluent reconstituted, 0.5 mL, PF Boby Santana MD Work Phone: [facility] 01-15-2023 Influenza, Seasonal, Quadrivalent, Adjuvanted Boby Santana MD Work Phone: [facility] 12-24-2021 Influenza, Seasonal, Quadrivalent, Adjuvanted Boby Santana MD Work Phone: [facility] 11-19-2020 Influenza, High-dose Seasonal, Quadrivalent, Preservative Free Marixa Robins MA [facility] 07-22-2020 zoster vaccine recombinant R jeanette Santana MD Work Phone: [facility] 01-01-2020 influenza, injectabl e, quadrivalent, preservative free Marixaher Shimon THOMAS [facility] 01-01-2020 Influenza, Seasonal, Quadrivalent, Adjuvanted Boby Santana MD Work Phone: [facility] 04-18-2019 zoster vaccine recombinant Marixa lee MA [facility] 08-18-2018 pneumococcal conjuga te vaccine, 13 valent Marixa Shimon THOMAS [facility] 12-27-2017 influenza, injectabl e, quadrivalent, preservative free Boby Santana MD Work Phone: [facility] 12-27-2017 seasonal influenza, intradermal, preservative free Marixa Shimon THOMAS [facility] 01-18-2017 influenza, injectabl e, quadrivalent, preservative free Boby Santana MD Work Phone: [facility] 01-04-2017 influenza, injectabl e, quadrivalent, preservative free Marixa Shimon THOMAS [facility] 01-01-2016 influenza, injectabl e, quadrivalent, preservative free Boby Santana MD Work Phone: [facility] 01-03-2015 seasonal influenza, intradermal, preservative free Marixa Shimon THOMAS [facility] 10-31-2013 influenza, seasonal, injectable Boby Santana MD Work Phone: [facility] 10-31-2013 zoster vaccine, live [facility] Shimon [facility] 10-24-2013 tetanus toxoid, redu aishwarya diphtheria toxoid, and acellular pertussis vaccine, adsorbed [facility] Shimon [facility] 09-07-2013 pneumococcal polysaccharide vaccine, 23 valent [facility] Shimon [facility] 01-24-2013 influenza, seasonal, injectable Boby Santana MD Work Phone: [facility] 03-17-2011 tetanus and diphther ia toxoids, adsorbed, preservative free, for adult use (2 Lf of tetanus toxoid and 2 Lf of diphtheria toxoid) [facility] Shimon [facility] 05-27-2009 novel influenza-H1N1 -09, preservative-free, injectable Boby Santana MD Work Phone: [facility] Payers Date Payer Category Payer Medicaid [employer] MEDICARE A DVANTAGE [id number] 2021 Medicare A[employer]NA MEDICARE A DVANTAGE AETNA MEDICARE REPLACEMENT [id number] 2021-Present [address] [place] [address] [id number] 1961 Medicare [id number] 1961 Medicare [id number] 1955 Unknown [id number] 1955 Unknown [id number] 1955 Unknown [id number] 1955 Unknown [id number] 1955 Unknown [id number] 1955 Unknown [id number] 1955 Unknown [id number] Social History Date Type Detail Facility Start: 09-29-2022 Tobacco smoking status NHIS Never sm oked tobacco [facility] Start: 09-29-2022 Tobacco use and exposure Smoke less tobacco non-user [facility] Start: 10-16-2022 End: 02-22-2024 Alcohol intake Current drinker of alcohol (finding) [...] to any clubs or organizations such as samaritan groups, unions, fraternal or athletic groups, or [...] [facility] History of Present illness Narrative 02-22-2024 Boby Santana MD - 02/22/2024 1:23 PM Teagan Santana MD - 02/22/2024 1:15 PM Teagan Santana MD - 02/22/2024 1:15 PM Teagan Santana MD - 02/22/2024 1:00 PM EST Note Date & Type Note Facility 02-22-2024 History of Presen t illness Narrative Associated Problem(s): Osteopenia This is a chronic medical condition that is stable since last assessment. No changes in treatment are suggested at this time. Continue Current meds. Associated Problem(s): Anxiety Patient's Medicine is effective at controlling symptoms at current dose and frequency. PDMP reviewed with no evidence of overuse and abuse D/W patient to avoid use of benzodiazepines when consuming alcohol Advised against operating heavy machinery and driving long distances while on medicines. Associated Problem(s): Hypertension (CMS/HCC) Our specific goals, for your hypertension, is to keep your blood pressure less than 140/90, and the importance of weight control. We made recommendations on how to control your blood pressure, and minimize your risk of these copmplications. We also discussed your current barriers to a healthy living and importance of healthy diet and exercise. Prior to your visit today we have reviewed your chart and formed a plan to assist with providing you the best possible care. We reviewed the possible complications of hypertension including, stroke, heart failure and kidney impairment. In addition, we discussed your medications, the importance of taking them as prescribed. DASH diet handouts Images from the original note were not included. Subjective Patient ID: Donna Austin is a 68 y.o. female who presents for Hypertension. Pt BP today was 158/92 Recheck 130/84 Hypertension This is a chronic problem. The current episode started in the past 7 days. The problem is unchanged. Associated symptoms include anxiety. Pertinent negatives include no chest pain. There are no known risk factors for coronary artery disease. Past treatments include beta blockers and diuretics. The current treatment provides mild improvement. There are no compliance problems. There is no history of angina, kidney disease, CAD/MA, CVA, heart failure, left ventricular hypertrophy, PVD or retinopathy. There is no history of chronic renal disease. Current Outpatient Medications on File Prior to Visit Medication Sig Dispense Refill alendronate (Fosamax) 70 MG tablet TAKE 1 TABLET ONCE WEEKLY 12 tablet 3 atorvastatin (Lipitor) 20 MG tablet TAKE 1 TABLET ONCE DAILY 100 tablet 3 busPIRone (Buspar) 5 MG tablet TAKE 1 TABLET POTID (IN THE MORNING, THEN IN THE EVENING, AND AT BEDTIME) 100 tablet 2 carvedilol (Coreg) 6.25 MG tablet Take 1 tablet (6.25 mg) by mouth in the morning and 1 tablet (6.25 mg) in the evening. Take with meals. 60 tablet 11 hydroCHLOROthiazide (HYDRODiuril) 25 MG tablet TAKE 1 TABLET BY MOUTH ONCE DAILY at the same time each day 100 tablet 3 [DISCONTINUED] busPIRone (Buspar) 5 MG tablet TAKE 1 TABLET BY MOUTH THREE TIMES DAILY (IN THE MORNING, IN THE EVENING, and BEFORE bedtime) 100 tablet 2 [DISCONTINUED] zolpidem (Ambien) 10 MG tablet Take 1 tablet (10 mg) by mouth as needed at bedtime for sleep 30 tablet 0 No current facility-administered medications on file prior to visit. I have reviewed and reconciled the history and medication list with the patient today. No Known Allergies Social History Tobacco Use Smoking status: Never Smokeless tobacco: Never Substance Use Topics Alcohol use: Yes Comment: Monthly or less. 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 The patient is not nervous/anxious. Objective Physical Exam Constitutional: General: She is not [...] Psychiatric: Mood and Affect: Mood normal. Assessment/Plan Problem List Items Addressed This Visit Anxiety Patient's Medicine is effective at controlling symptoms at current dose and frequency. PDMP reviewed with no evidence of overuse and abuse D/W patient to avoid use of benzodiazepines when consuming alcohol Advised against operating heavy machinery and driving long distances while on medicines. Relevant Medications zolpidem (Ambien) 10 MG tablet Hypertension ([facility]) - Primary Our specific goals, for your hypertension, is to keep your blood pressure less than 140/90, and the importance of weight control. We made recommendations on how to control your blood pressure, and minimize your risk of these copmplications. We also discussed your current barriers to a healthy living and importance of healthy diet and exercise. Prior to your visit today we have reviewed your chart and formed a plan to assist with providing you the best possible care. We reviewed the possible complications of hypertension including, stroke, heart failure and kidney impairment. In addition, we discussed your medications, the importance of taking them as prescribed. DASH diet handouts Follow up in about 6 months (around 08/21/2024) for Hypertension. documented in this encounter [facility] History of Present illness Narrative [...] apparent by direct observation Three Word Registration: [place], [place], Finger Clock Drawing: Normal Clock - 2 [...] Estrogen deficiency Other ovarian failure Primary hypertension (CMS/HCC) Unspecified essential hypertension Obstructive sleep apnea (adult) (pediatric) documented in this encounter [facility] Evaluation [...] Age-related osteoporosis without current pathological fracture (CMS/HCC) Primary hypertension (CMS/HCC)- Primary Unspecified essential hypertension Anxiety Anxiety state, unspecified Osteopenia of lumbar spine documented in this encounter [facility] Evaluation [...] Age-related osteoporosis without current pathological fracture (CMS/HCC) Primary hypertension (CMS/HCC)- Primary Unspecified essential hypertension Anxiety Anxiety state, unspecified Osteopenia of lumbar spine Anxiety Anxiety state, unspecified documented in this encounter [facility] Summary Purpose Family History No Family History Records FoundNo Family History Records Found Advance Directives No Advanced Directives Records FoundNo Advanced Directives Records Found Additional Source Comments INFORMATION SOURCE (unrecogn ized section and content) DATE CREATED AUTHOR 05/15/2022 [facility] DATE CREATED AUTHOR AUTHOR'S ORGANIZ ATION 02/25/2024 [facility] EPIC Reason for Visit (unrecogniz ed section and content) Reason Onset Date Comments Med Refill 05/20/2023 Reason Comments Medicare Annual Wellness Visit Subsequen t Pt states she can tell her BP is elevated pt is very nervous Pt bp today is 160/90 Reason Comments Hypertension Reason Onset Date Comments Med Refill 04/11/2024 Care Teams (unrecognized sec tion and content) 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 Start Date End Date Boby Santana MD [address] [place] [address] PCP - [employer] 04/05/22 Boby Santana MD [address] [place] [address] PCP - General Family Medicine 10/02/22 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 Start Date End Date Boby Santana MD [address] [place] [address] PCP - [employer] 04/05/21 Boby Santana MD [address] [place] [address] PCP - General Family Medicine 10/02/22 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 Start Date End Date Boby Santana MD [address] [place] [address] PCP - [employer] 04/05/21 Boby Santana MD [address] [place] [address] PCP - General Family Medicine 10/02/22 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 [facility]. provides no warranty or guarantee of the accuracy or completeness of information in this document.
== END 2024-05-16 12:45 | disposition home or self-care (01) ==
LOC: MAMMO 12:44
PROVIDERS: PCP Family Medicine; Visit Provider Family Medicine
DX: Z12.31 Encounter for screening mammogram for malignant neoplasm of breast (principal); Z80.0 Family history of malignant neoplasm of digestive organs
CPT/HCPCS: 77063; 77067